=== PATIENT | male | born 1960 | race African-American/Black ===

== ENCOUNTER 2016-07-05 18:44 | Emergency (ER) | payer OTHER ==
[~2016-07-05] VITALS: Ht 180.3 cm; Wt 96.2 kg
[2016-07-05] MEDS ORDERED: ACCUNEB SO1.25 MG/1 INH (18:48)
[2016-07-05] MEDS ORDERED: PREDNISONE 20 M20 MG PO (19:36)
[2016-07-05] MEDS ORDERED: VENTOLIN HFA 1818 GM INH (19:36)
[2016-07-05 19:57] VITALS: BP 168/101
== END 2016-07-05 20:00 | disposition home or self-care (01) ==
LOC: ER 18:44
DX: J45.901 Unspecified asthma with (acute) exacerbation (principal); I10 Essential (primary) hypertension; Z76.0 Encounter for issue of repeat prescription; Z88.0 Allergy status to penicillin

== ENCOUNTER 2018-03-08 16:24 | Emergency (ER) | payer OTHER ==
[~2018-03-08] VITALS: Ht 180.3 cm; Wt 95.3 kg
[~2018-03-08 16:24] MED LIST: ACCUNEB SO1.25 MG/1 INH; LISINOPRIL20 MG PO; PREDNISONE 20 M20 MG PO; VENTOLIN HFA 1818 GM INH
[2018-03-08] MEDS ORDERED: ASTHMA CHECK1 EACH INH (16:34)
[2018-03-08] MEDS ORDERED: [UNRECOGNIZED DRUG - OTHER] INH (16:35)
[2018-03-08 17:00] VITALS: BP 184/97
[2018-03-08] MEDS ORDERED: NORCO 10-325 T1 EACH PO (17:05)
== END 2018-03-08 17:29 | disposition home or self-care (01) ==
LOC: ER 16:24
DX: S82.001A Unspecified fracture of right patella, initial encounter for closed fracture (principal); I10 Essential (primary) hypertension; J45.909 Unspecified asthma, uncomplicated; Z88.0 Allergy status to penicillin; W10.9XXA Fall (on) (from) unspecified stairs and steps, initial encounter; Y93.89 Activity, other specified; Y92.89 Other specified places as the place of occurrence of the external cause; Y99.8 Other external cause status

== ENCOUNTER 2018-05-27 10:40 | Emergency (ER) | payer OTHER ==
[~2018-05-27] VITALS: Ht 180.3 cm; Wt 95.3 kg
[~2018-05-27 10:40] MED LIST changes: +ASTHMA CHECK1 EACH INH; +NORCO 10-325 T1 EACH PO; +[UNRECOGNIZED DRUG - OTHER] INH
[2018-05-27] MEDS ORDERED: TRAMADOL 50 MG50 MG PO (12:51)
[2018-05-27] MEDS ORDERED: NAPROSYN500 MG PO (12:51)
[2018-05-27 13:12] VITALS: BP 164/86
[2018-05-27 13:30] LABS: APTT 26.7 Seconds (24.5-32.8); D-DIMER 0.38 ug/mLFEU (0.19-0.50); INR 1.1; PROTIME 11.4 Seconds (9.3-11.4)
== END 2018-05-27 13:15 | disposition home or self-care (01) ==
LOC: ER 10:40
PROVIDERS: Emergency Medicine
DX: S82.091A Other fracture of right patella, initial encounter for closed fracture (principal); Z88.0 Allergy status to penicillin; I10 Essential (primary) hypertension; J45.909 Unspecified asthma, uncomplicated; V78.4XXA Person boarding or alighting from bus injured in noncollision transport accident, initial encounter; Y92.89 Other specified places as the place of occurrence of the external cause; Y93.89 Activity, other specified; Y99.8 Other external cause status